=== PATIENT | female | born 1940 | race Caucasian/White ===

== ENCOUNTER → 2016-05-22 | Outpatient (CLI) | payer MEDICARE ==
[~2016-05-22] MED LIST: ASPI325T5 PO; TYLE325T5 PO
[2016-05-22 10:08] LABS: BASO % 0.6 % (0.0-1.0); EOS # 0.1 K/mm3 (0.0-0.50); EOS % 2.2 % (0.0-3.0); LARGE UNSTAINED CELL # 0.1 K/mm3 (0.0-0.4); LARGE UNSTAINED CELL % 1.7 % (0.0-4.0); LYMPH # 0.7 K/mm3 (1.5-4.5); MEAN CORPUSCULAR HEMOGLOBIN 32.9 pg (27.0-33.0); MEAN CORPUSCULAR HGB CONC 35.1 g/dl (32.0-36.5); MEAN CORPUSCULAR VOLUME 93.9 fl (80.0-96.0); MONO # 0.2 K/mm3 (0.0-0.8); MONO % 4.9 % (0.0-5.0); NEUTROPHILS # 2.8 K/mm3 (1.8-7.7); NEUTROPHILS % 72.5 % (36.0-66.0); PLATELET COUNT, AUTOMATED 531 k/mm3 (150-450); RED CELL DISTRIBUTION WIDTH 11.4 % (11.5-14.5); WHITE BLOOD COUNT 3.8 K/mm3 (4.0-10.0)
[2016-05-22 10:16] LABS: INR 1.06
[2016-05-22 10:36] LABS: BLOOD UREA NITROGEN 10 MG/DL (7-18); CREATININE FOR GFR 0.93 MG/DL (0.55-1.02); GLOMERULAR FILTRATION RATE > 60.0 (>39)
== END ==
LOC: M LAB 09:36
PROVIDERS: ATTEND Physician Assistant Surgical
DX: M54.2 Cervicalgia (principal); Z79.01 Long term (current) use of anticoagulants

== ENCOUNTER → 2016-06-06 | Outpatient (CLI) | payer MEDICARE ==
[~2016-06-06] MED LIST changes: +CONRAY-43 43% 50ML VIAL (Q9960) As Ordered ONE; +ISOVUE-M 300 61% 15ML VIAL (Q9967) As Ordered ONE
--- NOTE | 2016-06-06 10:09 | REP ---
CT CERVICAL SPINE WITHOUT CONTRAST: HISTORY: Neck pain. COMPARISON: 04/04/2016. CT of the cervical spine was performed status post myelography. Disc bulges are present at the C3-4 and C4-5 levels. Disc bulges with associated osteophyte formation are present at the C5-6 and C6-7 levels. There is minimal effacement of the thecal sac without spinal cord compression at the C3-4, C4-5 and C6-7 levels. There is mild effacement of the thecal sac without spinal cord compression at the C5-6 level. Uncinate process and/or facet hypertrophy are present at the C3-4 through C7-T1 levels. These findings produce minimal to severe narrowing of the neural foramina. The C5-6 and C6-7 intervertebral discs are decreased in height consistent with disc degeneration. 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 Anterior osteophytes are present at the C1-2 and C3-4 through C7-T1 levels. There is no subluxation. IMPRESSION: There is cervical spondylosis at the C1-2 and C3-4 through C7-T1 levels. Signed by Perez May MD 06/06/2016 10:32 A
--- NOTE | 2016-06-06 14:06 | REP ---
FLUOROSCOPIC GUIDANCE FOR CERVICAL MYELOGRAM INJECTION: The procedure was performed under the personal supervision of Dr. May. The risks and benefits of the procedure were explained to the patient and informed consent was obtained. The L3-4 interspace was localized using fluoroscopic guidance. The skin was prepped and draped in a sterile fashion. 1% lidocaine was used as a local anesthetic. Using fluoroscopic guidance a 22 gauge spinal needle was inserted and advanced into the thecal sac. 10 mL of Isovue M 300 was injected. The needle was removed and the patient was taken to CAT scan for post procedural imaging. The patient tolerated the procedure well and there were no immediate complications. After the appropriate amount of monitored convalescence the patient was discharged from the department. 50 seconds of fluoroscopy time was utilized for this procedure. Reviewed by SANTINO Stockton 06/06/2016 05:17 PEdited and Signed by Perez May MD 06/06/2016 05:31 P
== END ==
LOC: M RADPRO 07:58
PROVIDERS: ATTEND Physician Assistant Surgical
DX: M47.812 Spondylosis without myelopathy or radiculopathy, cervical region (principal); M50.30 Other cervical disc degeneration, unspecified cervical region; I51.9 Heart disease, unspecified; D72.819 Decreased white blood cell count, unspecified; H35.9 Unspecified retinal disorder; M19.90 Unspecified osteoarthritis, unspecified site; R42 Dizziness and giddiness; G89.29 Other chronic pain; I48.91 Unspecified atrial fibrillation; D64.9 Anemia, unspecified; R23.3 Spontaneous ecchymoses; F32.9 Major depressive disorder, single episode, unspecified; F41.9 Anxiety disorder, unspecified; Z87.39 Personal history of other diseases of the musculoskeletal system and connective tissue; Z87.19 Personal history of other diseases of the digestive system; Z86.79 Personal history of other diseases of the circulatory system; Z86.69 Personal history of other diseases of the nervous system and sense organs; Z96.1 Presence of intraocular lens; Z79.01 Long term (current) use of anticoagulants; Z88.5 Allergy status to narcotic agent; Z88.8 Allergy status to other drugs, medicaments and biological substances; Z85.828 Personal history of other malignant neoplasm of skin; Z95.0 Presence of cardiac pacemaker; Z79.899 Other long term (current) drug therapy
CPT/HCPCS: 62302; 72125; Q9967

== ENCOUNTER → 2016-08-10 | Outpatient (REF) | payer MEDICARE ==
[~2016-08-10] MED LIST changes: -CONRAY-43 43% 50ML VIAL (Q9960) As Ordered ONE; -ISOVUE-M 300 61% 15ML VIAL (Q9967) As Ordered ONE
[2016-08-10 14:17] LABS: TOTAL PROTEIN 7.6 GM/DL (6.4-8.2)
[2016-08-10 14:26] LABS: VITAMIN B12 LEVEL 1034 PG/ML
[2016-08-10 14:28] LABS: FOLATE > 24.0 NG/ML
[2016-08-11 10:14] LABS: ALBUMIN 4.62 GM/DL (3.29-5.55); ALBUMIN % 60.8 % (55.8-66.1); GAMMA GLOBULIN % 14.8 % (11.1-18.8)
[2016-08-13 08:06] LABS: VITAMIN E LEVEL 15.5 mg/L (6.5-21.5)
== END ==
LOC: M LABNEURO 13:00
PROVIDERS: ATTEND Psychiatry & Neurology Neurology
DX: G58.9 Mononeuropathy, unspecified (principal); Z13.88 Encounter for screening for disorder due to exposure to contaminants; T56.894A Toxic effect of other metals, undetermined, initial encounter

== ENCOUNTER → 2018-10-31 | Outpatient (REF) | payer MEDICARE | LOC: M LABNEURO 15:04 | PROVIDERS: ATTEND Physician Assistant | DX: I47.1 Supraventricular tachycardia (principal) ==

== ENCOUNTER → 2018-12-25 | Outpatient (REF) | payer MEDICARE ==
[2018-12-25 14:07] LABS: BASO # 0.1 10^3/uL (0.0-0.2); BASO % 1.6 % (0.0-1.0); EOS # 0.1 10^3/uL (0.0-0.50); EOS % 2.1 % (0.0-3.0); HEMATOCRIT 39.8 % (36.0-47.0); HEMOGLOBIN 13.2 g/dl (12.0-15.5); LYMPH # 1.1 10^3/uL (1.5-4.5); LYMPH % 27.6 % (24.0-44.0); MEAN CORPUSCULAR HEMOGLOBIN 33.2 pg (27.0-33.0); MEAN CORPUSCULAR HGB CONC 33.2 g/dl (32.0-36.5); MONO # 0.3 10^3/uL (0.0-0.8); MONO % 6.7 % (0.0-5.0); NEUTROPHILS # 2.4 10^3/uL (1.8-7.7); NEUTROPHILS % 61.7 % (36.0-66.0); PLATELET COUNT, AUTOMATED 355 10^3/uL (150-450); RED BLOOD COUNT 3.98 10^6/uL (4.00-5.40); WHITE BLOOD COUNT 3.9 10^3/uL (4.0-10.0)
[2018-12-25 14:47] LABS: ERYTHROCYTE SEDIMENTATION RATE 8 mm/hr (0-30)
== END ==
LOC: M LABDRAW1 11:43
PROVIDERS: ATTEND Physician Assistant
DX: R93.1 Abnormal findings on diagnostic imaging of heart and coronary circulation (principal)

== ENCOUNTER → 2018-12-26 | Outpatient (REF) | payer MEDICARE | LOC: M LABDRAW1 11:17 | PROVIDERS: ATTEND Physician Assistant | DX: R93.1 Abnormal findings on diagnostic imaging of heart and coronary circulation (principal) ==

== ENCOUNTER → 2019-04-02 | Outpatient (REF) | payer MEDICARE ==
[2019-04-02 14:07] LABS: FOLATE 13.4 NG/ML
== END ==
LOC: M LAB REF 12:39
PROVIDERS: ATTEND Internal Medicine
DX: D72.819 Decreased white blood cell count, unspecified (principal)

== ENCOUNTER → 2020-10-13 | Outpatient (CLI) | payer MEDICARE ==
[2020-10-13 11:15] LABS: HEMOGLOBIN 13.2 g/dl (12.0-15.5); MEAN CORPUSCULAR HEMOGLOBIN 32.2 pg (27.0-33.0); MEAN CORPUSCULAR VOLUME 97.6 fl (80.0-96.0); PLATELET COUNT, AUTOMATED 341 10^3/uL (150-450); WHITE BLOOD COUNT 3.7 10^3/uL (4.0-10.0)
== END ==
LOC: M LAB 10:04
PROVIDERS: ATTEND Physician Assistant
DX: I48.0 Paroxysmal atrial fibrillation (principal)

== ENCOUNTER → 2021-04-15 | Outpatient (CLI) | payer MEDICARE ==
[~2021-04-15] MED LIST changes: +E-Z-GAS II EFFERVESCENT PACKET (SODIUM BICARB./CITRIC ACID/SIMETHICONE) As Ordered ONE; +E-Z-HD 98% w/w 340GM SUSP BTL As Ordered ONE; +E-Z-PAQUE 96% w/w SUSP 176GM BTL As Ordered ONE
--- NOTE | 2021-04-15 18:32 | REP ---
INDICATION: DYSPHAGIA, GERD, WT LOSS. COMPARISON: None TECHNIQUE: This procedure was performed by SANTINO Cabral, under the direct supervision of Dr. Perera. Images were reviewed with Dr. Perera prior to dictation. Liquid barium and gas producing crystals were given in the erect position, as well as liquid barium in the prone oblique position in order to perform a double contrast upper GI examination. FINDINGS: The manager primary care film shows no organomegaly or pathological masses. The intestinal gas pattern is unremarkable. There is early oral spill before the swallow was even initiated. Evaluation with speech pathology is recommended. 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 There are minor tertiary contractions within the distal esophagus. There is no evidence of a hiatal hernia. Gastroesophageal reflux was observed to below the level of the rosie. The stomach longo are normally outlined. The rugal folds are smooth and regular. There is no gastritis, neoplasm, or ulcerative disease. The duodenal longo are normally outlined. The mucosal folds are smooth and regular. There is no duodenitis, peptic ulcer disease or neoplasm. The visualized portion of the proximal small bowel appears normal in course and caliber. IMPRESSION: There is early oral spill before the swallow phases even initiated. Evaluation with speech pathology is recommended. 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 There minor tertiary contractions within the distal esophagus. Gastroesophageal reflux was observed to below the level of the rosie. 0.6 minutes of fluoroscopy time was utilized for this procedure. Some fluoroscopic images are performed with last image hold technology. These images require no additional radiation. <Electronically signed by Breana Brothers > 04/15/21 [id number] <Electronically signed by Mario Perera > 04/15/21 [id number]
== END ==
LOC: M RAD 08:43
PROVIDERS: ATTEND Internal Medicine
DX: R13.10 Dysphagia, unspecified (principal); K21.9 Gastro-esophageal reflux disease without esophagitis; R63.4 Abnormal weight loss

== ENCOUNTER → 2021-05-19 | Outpatient (CLI) | payer MEDICARE ==
[~2021-05-19] MED LIST changes: -E-Z-GAS II EFFERVESCENT PACKET (SODIUM BICARB./CITRIC ACID/SIMETHICONE) As Ordered ONE; -E-Z-HD 98% w/w 340GM SUSP BTL As Ordered ONE; +VARIBAR NECTAR 40% w/v 240ML SUSP BTL As Ordered ONE; +VARIBAR PUDDING 40% w/v 230ML TUBE As Ordered ONE
--- NOTE | 2021-05-19 17:50 | REP ---
INDICATION: GERD AND DYSPHAGIA. COMPARISON: NONE TECHNIQUE: The procedure was performed under the direct supervision of . The procedure was performed with Georgia Saldivar from speech pathology present. 1.4 minutes of fluoroscopy time was utilized for this procedure. FINDINGS: 5 cc aliquots of thin, pudding, mixed fruit and solid consistency barium was administered. There is no evidence of penetration or aspiration. 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 IMPRESSION: There is no evidence of penetration or aspiration. 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 A detailed report of this examination will be provided by speech pathology. <Electronically signed by Ck Brock > 05/19/21 1520 <Electronically signed by Mario Perera > 05/19/21 [id number]
== END ==
LOC: M RAD 13:18
PROVIDERS: ATTEND Internal Medicine
DX: K21.9 Gastro-esophageal reflux disease without esophagitis (principal); R47.02 Dysphasia

== ENCOUNTER → 2021-10-27 | Outpatient (CLI) | payer MEDICARE ==
[~2021-10-27] MED LIST changes: -E-Z-PAQUE 96% w/w SUSP 176GM BTL As Ordered ONE; +GASTROGRAFIN SOLUTION 30ML (Q9963) As Ordered ONE; -VARIBAR NECTAR 40% w/v 240ML SUSP BTL As Ordered ONE; -VARIBAR PUDDING 40% w/v 230ML TUBE As Ordered ONE
== END ==
LOC: M RAD 13:23
PROVIDERS: ATTEND Internal Medicine
DX: R10.12 Left upper quadrant pain (principal)
CPT/HCPCS: 74176; Q9963

== ENCOUNTER 2022-08-22 07:51 | Day surgery (SDC) | payer MEDICARE ==
[~2022-08-22] VITALS: Ht 157.5 cm; Wt 50.8 kg
[~2022-08-22 07:51] MED LIST changes: +GLYCOPYRROLATE INJ 0.2 MG/ML 2 ML VIAL As Ordered ONE; +LIDOCAINE 2% 100MG/5ML SDV (FOR ANES.) As Ordered ONE; +NS 1,000 ML IV ONE; +propofoL 200 MG/20 ML VIAL As Ordered ONE
[2022-08-22 10:01] VITALS: BP 166/81
== END 2022-08-22 10:12 | disposition home or self-care (01) ==
LOC: M OPP 07:51
PROVIDERS: ATTEND Internal Medicine Gastroenterology
DX: R13.10 Dysphagia, unspecified (principal); R12 Heartburn; K29.50 Unspecified chronic gastritis without bleeding; K44.9 Diaphragmatic hernia without obstruction or gangrene; M16.11 Unilateral primary osteoarthritis, right hip

== ENCOUNTER → 2022-08-22 | Outpatient (CLI) | payer MEDICARE ==
[~2022-08-22] MED LIST changes: +ATOR1TAB19 PO; +ELIQ5TAB PO; -GASTROGRAFIN SOLUTION 30ML (Q9963) As Ordered ONE; +OMEP40CA5 PO; +VITA100093 PO
[2022-08-22 13:21] LABS: INR 0.95; PROTHROMBIN TIME 12.9 SECONDS (12.5-14.5)
== END ==
LOC: M PLALAB 10:47
PROVIDERS: ATTEND Orthopaedic Surgery
DX: M16.11 Unilateral primary osteoarthritis, right hip (principal)

== ENCOUNTER → 2022-08-24 | Outpatient (CLI) | payer MEDICARE ==
[~2022-08-24] MED LIST changes: -GLYCOPYRROLATE INJ 0.2 MG/ML 2 ML VIAL As Ordered ONE; +ISOVUE-300 61% 100ML VIAL As Ordered ONE; +LIDOCAINE 1% MDV 20ML VIAL As Ordered ONE; -LIDOCAINE 2% 100MG/5ML SDV (FOR ANES.) As Ordered ONE; -NS 1,000 ML IV ONE; +TRIAMCINOLONE ACETONIDE SUSP 40MG/ML 1ML VIAL As Ordered ONE; -propofoL 200 MG/20 ML VIAL As Ordered ONE
== END ==
LOC: M RAD 13:35
PROVIDERS: ATTEND Orthopaedic Surgery
DX: M16.11 Unilateral primary osteoarthritis, right hip (principal)
CPT/HCPCS: 20610; 77002; J3301; Q9967

== ENCOUNTER → 2022-09-09 | Outpatient (CLI) | payer MEDICARE ==
[~2022-09-09] MED LIST changes: -ISOVUE-300 61% 100ML VIAL As Ordered ONE; -LIDOCAINE 1% MDV 20ML VIAL As Ordered ONE; -TRIAMCINOLONE ACETONIDE SUSP 40MG/ML 1ML VIAL As Ordered ONE
[2022-09-09 15:04] LABS: CALCIUM LEVEL 8.9 MG/DL (8.3-10.6); CREATININE FOR GFR 1.04 MG/DL (0.55-1.30); GLOMERULAR FILTRATION RATE 54.1 (>32); POTASSIUM SERUM 4.1 MMOL/L (3.5-5.1)
[2022-09-09 15:06] LABS: HEMATOCRIT 38.9 % (36.0-47.0); HEMOGLOBIN 12.7 g/dl (12.0-15.5); MEAN CORPUSCULAR HEMOGLOBIN 32.6 pg (27.0-33.0); MEAN CORPUSCULAR HGB CONC 32.6 g/dl (32.0-36.5); PLATELET COUNT, AUTOMATED 292 10^3/uL (150-450); RED BLOOD COUNT 3.89 10^6/uL (4.00-5.40)
== END ==
LOC: M PLALAB 12:17
PROVIDERS: ATTEND Physician Assistant
DX: I49.5 Sick sinus syndrome (principal)

== ENCOUNTER → 2022-09-16 | Day surgery (SDC) | payer MEDICARE ==
[~2022-09-16] VITALS: Ht 154.9 cm; Wt 50.3 kg
[~2022-09-16] MED LIST changes: +ACETAMINOPHEN 1000MG 100ML IV BAG As Ordered ONE; +LIDOCAINE 1% SDV 30ML VIAL As Ordered ONE; +LIDOCAINE 1% SDV 5ML VIAL SC PRN; +LIDOCAINE 2% 100MG/5ML SDV (FOR ANES.) As Ordered ONE; +LR 1,000 ML IV SCH; +ONDANSETRON 4MG 2ML VIAL As Ordered ONE; +POLYSPORIN TOPICAL OINTMENT 15GM As Ordered ONE; +ceFAZolin SOD 2 GM in IV 1 EA IV ONE; +fentaNYL 100 MCG/2 ML INJECTION As Ordered ONE; +propofoL 200 MG/20 ML VIAL As Ordered ONE
[2022-09-16 17:10] VITALS: BP 182/92
== END | disposition home or self-care (01) ==
LOC: M SDC 12:17
PROVIDERS: ATTEND Internal Medicine Cardiovascular Disease
DX: Z45.010 Encounter for checking and testing of cardiac pacemaker pulse generator [battery] (principal); I48.91 Unspecified atrial fibrillation; E78.00 Pure hypercholesterolemia, unspecified; E03.9 Hypothyroidism, unspecified; M19.90 Unspecified osteoarthritis, unspecified site; F41.9 Anxiety disorder, unspecified; F32.A Depression, unspecified; Z88.5 Allergy status to narcotic agent; Z79.899 Other long term (current) drug therapy; Z79.01 Long term (current) use of anticoagulants
CPT/HCPCS: 33228; C1785; J0131; J0690; J1100; J2405; J3010

== ENCOUNTER → 2022-12-09 | Outpatient (CLI) | payer MEDICARE ==
[~2022-12-09] MED LIST changes: -ACETAMINOPHEN 1000MG 100ML IV BAG As Ordered ONE; -LIDOCAINE 1% SDV 30ML VIAL As Ordered ONE; -LIDOCAINE 1% SDV 5ML VIAL SC PRN; -LIDOCAINE 2% 100MG/5ML SDV (FOR ANES.) As Ordered ONE; -LR 1,000 ML IV SCH; -ONDANSETRON 4MG 2ML VIAL As Ordered ONE; -POLYSPORIN TOPICAL OINTMENT 15GM As Ordered ONE; -ceFAZolin SOD 2 GM in IV 1 EA IV ONE; -fentaNYL 100 MCG/2 ML INJECTION As Ordered ONE; -propofoL 200 MG/20 ML VIAL As Ordered ONE
== END ==
LOC: M PLAIMG 13:48
PROVIDERS: ATTEND Orthopaedic Surgery
DX: M16.11 Unilateral primary osteoarthritis, right hip (principal)

== ENCOUNTER → 2023-09-25 | Outpatient (REF) | payer MEDICARE ==
[2023-09-25 13:40] LABS: APPEARANCE, URINE CLEAR (CLEAR); BACTERIA, URINE AUTO NEGATIVE (NEGATIVE); BILIRUBIN, URINE AUTO NEGATIVE (NEGATIVE); BLOOD, URINE BLOOD NEGATIVE (NEGATIVE); COLOR, URINE YELLOW (YELLOW); GLUCOSE, URINE (UA) AUTO NEGATIVE (NEGATIVE); KETONE, URINE AUTO NEGATIVE (NEGATIVE); LEUKOCYTE ESTERASE, URINE AUTO NEGATIVE (NEGATIVE); NITRITE, URINE AUTO NEGATIVE (NEGATIVE); PROTEIN, URINE AUTO NEGATIVE (NEGATIVE); RBC, URINE AUTO 3 /HPF (0-3); SPECIFIC GRAVITY URINE AUTO 1.013 (1.002-1.035); SQUAMOUS EPITHELIAL CELL UR AU 0 /HPF (0-6); UROBILINOGEN, URINE AUTO 0.2 mg/dL (0.0-2.0); WBC, URINE AUTO 0 /HPF (0-3)
== END ==
LOC: M SMT 12:44
PROVIDERS: ATTEND Nurse Practitioner Family
DX: R32 Unspecified urinary incontinence (principal)

== ENCOUNTER → 2024-01-06 | Outpatient (CLI) | payer MEDICARE | LOC: M RAD 10:56 | PROVIDERS: ATTEND Physician Assistant | DX: S63.511A Sprain of carpal joint of right wrist, initial encounter (principal); W18.30XA Fall on same level, unspecified, initial encounter; Y92.009 Unspecified place in unspecified non-institutional (private) residence as the place of occurrence of the external cause ==

== ENCOUNTER 2024-02-28 11:22 | Day surgery (SDC) | payer MEDICARE ==
[~2024-02-28] VITALS: Ht 154.9 cm; Wt 48.0 kg
[~2024-02-28 11:22] MED LIST changes: +NS 250 ML IV ONE; +VITATAB73 PO; +lutein PO
[2024-02-28] MEDS ORDERED: propofoL 200 MG/20 ML VIAL As Ordered ONE (11:31)
[2024-02-28] MEDS ORDERED: PHENYLephrine 500MCG 5ML (100MCG/ML) SYRINGE As Ordered ONE (12:14)
[2024-02-28 12:40] VITALS: BP 147/65; TEMP 96.1; O2SAT 98
== END 2024-02-28 12:45 | disposition home or self-care (01) ==
LOC: M OPP 11:22
PROVIDERS: ATTEND Internal Medicine Gastroenterology
DX: Z12.11 Encounter for screening for malignant neoplasm of colon (principal); Z12.12 Encounter for screening for malignant neoplasm of rectum; K55.9 Vascular disorder of intestine, unspecified; K62.6 Ulcer of anus and rectum; K57.30 Diverticulosis of large intestine without perforation or abscess without bleeding; R13.10 Dysphagia, unspecified; K44.9 Diaphragmatic hernia without obstruction or gangrene; R12 Heartburn; Z90.49 Acquired absence of other specified parts of digestive tract; Z85.820 Personal history of malignant melanoma of skin; I48.91 Unspecified atrial fibrillation; N28.9 Disorder of kidney and ureter, unspecified; E78.00 Pure hypercholesterolemia, unspecified; Z85.828 Personal history of other malignant neoplasm of skin; Z79.01 Long term (current) use of anticoagulants; Z95.0 Presence of cardiac pacemaker; Z79.899 Other long term (current) drug therapy; Z88.5 Allergy status to narcotic agent; Z90.710 Acquired absence of both cervix and uterus; Z90.89 Acquired absence of other organs
CPT/HCPCS: 43235; 45380; 88305; J2371

== ENCOUNTER → 2024-07-15 | Outpatient (CLI) | payer MEDICARE ==
[~2024-07-15] MED LIST changes: -NS 250 ML IV ONE
== END ==
LOC: M CARPUL 14:10
PROVIDERS: ATTEND Physician Assistant
DX: R06.02 Shortness of breath (principal); I08.0 Rheumatic disorders of both mitral and aortic valves